=== PATIENT | female | born 1960 | race Caucasian/White ===

== ENCOUNTER → 2018-08-30 | Outpatient (CLI) | payer OTHER | LOC: MAMMO 10:37 | PROVIDERS: ATTEND Family Medicine | DX: Z12.31 Encounter for screening mammogram for malignant neoplasm of breast (principal) | CPT/HCPCS: 77067 ==

== ENCOUNTER → 2021-02-23 | Outpatient (CLI) | payer OTHER ==
[~2021-02-23] MED LIST: AZELASTINE137 MCG/0.; COSENTYX (150 MG/1 M; DICLOFENAC SODI75 MG; MECLIZINE HCL25 MG; OLMESARTAN-HCT1 EAC2; ROSUVASTATIN CA20 MG
== END ==
LOC: MAMMO 12:46
PROVIDERS: ATTEND Family Medicine
DX: Z12.31 Encounter for screening mammogram for malignant neoplasm of breast (principal)
CPT/HCPCS: 77067

== ENCOUNTER → 2021-04-29 | Outpatient (CLI) | payer OTHER | LOC: MRI 10:42 | PROVIDERS: ATTEND Family Medicine | DX: M47.27 Other spondylosis with radiculopathy, lumbosacral region (principal) | CPT/HCPCS: 72148 ==

== ENCOUNTER → 2022-08-04 | Outpatient (CLI) | payer OTHER | LOC: MAMMO 15:54 | PROVIDERS: ATTEND Family Medicine | DX: Z12.31 Encounter for screening mammogram for malignant neoplasm of breast (principal) | CPT/HCPCS: 77067 ==

== ENCOUNTER → 2025-03-04 | Outpatient (REF) | payer OTHER | LOC: MAMMO 12:56 | PROVIDERS: ATTEND Family Medicine | DX: Z12.31 Encounter for screening mammogram for malignant neoplasm of breast (principal) | CPT/HCPCS: 77067 ==